=== PATIENT | male | born 1960 | race African-American/Black ===

== ENCOUNTER → 2016-09-01 | Outpatient (CLI) | payer OTHER ==
[~2016-09-01] MED LIST: BENADRYL25 M2 PO; HCTZ 25MG TAB25 MG PO; MUCINEX 60600 MG/TA1 PO; PREDNISONE20 MG PO; PRINZIDE 12.5 M1 TA1 PO; SYNTHROID0.175 MG PO
== END ==
LOC: COL.PUL 09:32
DX: R94.2 Abnormal results of pulmonary function studies (principal); Z87.891 Personal history of nicotine dependence

== ENCOUNTER → 2020-07-31 | Outpatient (CLI) | payer OTHER | LOC: COL.VAS 10:39 | DX: I07.1 Rheumatic tricuspid insufficiency (principal); I34.0 Nonrheumatic mitral (valve) insufficiency ==